=== PATIENT | male | born 1950 | race Caucasian/White ===

== ENCOUNTER 2019-07-24 08:19 | Inpatient (IN) | payer MEDICARE ==
[2019-07-24] VITALS (15 sets, daily range): BP systolic 112–149; BP diastolic 57–86
[~2019-07-24] VITALS: Ht 180.3 cm; Wt 88.9 kg
[2019-07-24 08:56] LABS: BASO % 0.3 % (0.0-1.0); EOS # 0.1 10*3/uL (0.0-0.4); EOS % 0.9 % (1.0-4.0); LYMPH % 11.3 % (27.0-41.0); MEAN CELL VOLUME 94.2 fl (80.0-94.0); MEAN CORPUSCULAR HGB 32.1 pg (27.0-31.0); MEAN CORPUSCULAR HGB CONC 34.1 g/dl (33.0-37.0); MEAN PLATELET VOLUME 9.4 fl (9.6-12.3); MONO # 0.5 10*3/uL (0.1-1.0); MONO % 6.1 % (3.0-9.0); NEUT # 7.1 10*3/uL (2.3-7.9); NEUT % 80.9 % (47.0-73.0); PLATELET COUNT AUTOMATED 215 10*3/uL (130-400); RED BLOOD COUNT 4.67 10*6/uL (4.50-5.90); WHITE BLOOD COUNT 8.7 10*3/uL (4.8-10.8)
[2019-07-24 09:07] LABS: ACT PARTIAL THROMBO TIME 27.2 SECONDS (20.0-32.1); INTERNATIONAL NORM RATIO 0.9 (2.0-3.5)
[2019-07-24 09:13] LABS: ALBUMIN 3.7 gm/dl (3.1-4.5); CREATININE 1.43 mg/dL (0.70-1.30); POTASSIUM 4.9 mmol/L (3.5-5.1); TOTAL PROTEIN 8.1 gm/dL (6.4-8.2)
[2019-07-24 09:14] LABS: TROPONIN I 0.043 ng/ml (<0.045)
--- NOTE | 2019-07-24 09:17 | NUR ---
Critical Values received: Lactic Acid 2.1 Troponin [address] Samayoa and Primary RN. No new orders received.
[2019-07-24 10:59] LABS: ABG BASE EXCESS -1.3 mmol/L (-2.0-2.0); ARTERIAL BLOOD GAS PH 7.353 (7.35-7.45)
--- NOTE | 2019-07-24 11:29 | NUR ---
A 69, admitted to ICCU, under the services of AURA Junior DO with a diagnosis of RESP FAILURE. Chief complaint is SOB AT HOME. Patient arrived via stretcher from ER. Monitor applied. Initial assessment completed. Vital signs taken and recorded. AURA JUNIOR DO notified of admission to the unit. Orders received. See assessment for past medical history, medications and allergies. Patient and/or family oriented to unit. [facility] ICCU visitation policy reviewed. Clothing/patient valuable form completed. RANDA DAVE
[2019-07-24] MEDS ORDERED: NORVASC10 MG PO (11:39)
[2019-07-24] MEDS ORDERED: GLUCOPHAGE500 MG PO (11:40)
[2019-07-24] MEDS ORDERED: PRAVASTATIN SOD20 MG PO (11:41)
[2019-07-24] MEDS ORDERED: LIPITOR20 MG PO (11:44)
--- NOTE | 2019-07-24 12:30 | NUR ---
ON BIPAP 16/10 FIO2 70% POX 94%.
[2019-07-24 15:05] LABS: ABG BASE EXCESS -4.7 mmol/L (-2.0-2.0); ARTERIAL BLOOD GAS PH 7.28 (7.35-7.45)
--- NOTE | 2019-07-24 16:00 | NUR ---
BIPAP 20/10 FIO2 60%.
[2019-07-24 18:19] LABS: ABG BASE EXCESS -2.9 mmol/L (-2.0-2.0); ARTERIAL BLOOD GAS PH 7.318 (7.35-7.45)
--- NOTE | 2019-07-24 18:30 | NUR ---
PATIENT PLACED ON HIGH FLOW NASAL CANULA TO EAT, PATIENT UNABLE TO TOLERATE AND CANNOT EAT, PLACED BACK ON BIPAP.
[2019-07-24] MEDS ORDERED: REMERON15 M2 PO (18:39)
--- NOTE | 2019-07-24 20:08 | NUR ---
PT. RESTING IN BED. IVF INFUSING VIA LW ASYMPT. LUNGS HAVE I&E WHEEZES BILAT, PULSE OX 95% ON 60% 02 BIPAP. ABDOMEN SOFT, NONDISTENDED AND NORMO. NO PERIPHERAL EDEMA NOTED. RESP. EASY AND REG NO DISTRESS. WINTER TOLEDO, RN
[2019-07-25] VITALS: BP 142/51
[2019-07-25 04:00] VITALS: BP 118/58
[2019-07-25 05:23] LABS: ALKALINE PHOSPHATASE 90 U/L (45-117); BUN 21 mg/dl (7-24); CHLORIDE 109 mmol/L (98-107); CHOLESTEROL 99 mg/dL (<200); CREATININE 1.25 mg/dL (0.70-1.30); HDL CHOLESTEROL 31 mg/dl (40-60); LDL CHOLESTEROL 46 mg/dL (9-159); PHOSPHOROUS 3.5 mg/dL (2.5-4.9); POTASSIUM 4.5 mmol/L (3.5-5.1); SGOT/AST 22 IU/L (3-35); SGPT/ALT 33 U/L (12-78); SODIUM 141 mmol/L (136-145); TOTAL PROTEIN 6.9 gm/dL (6.4-8.2); TRIGLYCERIDES 110 mg/dl (<150); VLDL CHOLESTEROL 22 mg/dL (6-40)
[2019-07-25 05:24] LABS: FREE T4 1.07 ng/dl (0.76-1.46)
[2019-07-25 05:29] LABS: THYROID STIM HORMONE (HS) 0.289 uIU/ml (0.358-4.75)
[2019-07-25 05:44] LABS: ACT PARTIAL THROMBO TIME 27.3 SECONDS (20.0-32.1); INTERNATIONAL NORM RATIO 0.9 (2.0-3.5)
[2019-07-25 06:22] LABS: VITAMIN D, 25-HYDROXY 41.1 ng/mL (30-100)
[2019-07-25 07:15] LABS: ABG BASE EXCESS -1.9 mmol/L (-2.0-2.0); ARTERIAL BLOOD GAS PH 7.33 (7.35-7.45)
[2019-07-25 08:00] VITALS: BP 121/61
[2019-07-25 10:03] LABS: BASO % 0.1 % (0.0-1.0); EOS # 0.1 10*3/uL (0.0-0.4); EOS % 1.4 % (1.0-4.0); HEMATOCRIT 39.3 % (42.0-52.0); HEMOGLOBIN 12.7 g/dl (14.0-18.0); LYMPH # 1.9 10*3/uL (1.3-4.4); LYMPH % 19.1 % (27.0-41.0); MEAN CORPUSCULAR HGB 32.2 pg (27.0-31.0); MEAN CORPUSCULAR HGB CONC 32.3 g/dl (33.0-37.0); MEAN PLATELET VOLUME 9.9 fl (9.6-12.3); MONO # 0.6 10*3/uL (0.1-1.0); MONO % 5.7 % (3.0-9.0); NEUT # 7.3 10*3/uL (2.3-7.9); NEUT % 73.3 % (47.0-73.0); PLATELET COUNT AUTOMATED 212 10*3/uL (130-400); RED BLOOD COUNT 3.95 10*6/uL (4.50-5.90)
[2019-07-25 10:13] LABS: MEAN CELL VOLUME 99.5 fl (80.0-94.0)
--- NOTE | 2019-07-25 10:30 | NUR ---
Sports Internship in to see patient. He is currently on bipap. Will follow up at a later time.
[2019-07-25 12:00] VITALS: BP 139/72
--- NOTE | 2019-07-25 13:00 | NUR ---
Mosaic Technician in to see patient. He is currently on bipap. Will follow up at a later time.
--- NOTE | 2019-07-25 14:00 | NUR ---
STOOD UP TO VOID WITH BI-PAP ON. SHORT OF BREATH. PULSE OX 90-91%. RESPIRATORY RATE IN THE 30'S.
[2019-07-25 14:46] LABS: ABG BASE EXCESS -1.7 mmol/L (-2.0-2.0); ARTERIAL BLOOD GAS PH 7.355 (7.35-7.45)
[2019-07-25 16:00] VITALS: BP 129/62
--- NOTE | 2019-07-25 19:30 | NUR ---
Pt taken off BiPap and placed on an 8L HFNC to get some dinner. Will continue to monitor.
[2019-07-25 20:00] VITALS: BP 115/55
--- NOTE | 2019-07-25 23:00 | NUR ---
Pt found back on BiPap resting comfortably. BiPap 20/10 and an FiO2 of 35%. Alarms on and audible. SpO2 94%
[2019-07-26] VITALS: BP 119/61
[2019-07-26 04:00] VITALS: BP 117/54
[2019-07-26 05:50] LABS: BUN 23 mg/dl (7-24); CHLORIDE 110 mmol/L (98-107); CREATININE 1.13 mg/dL (0.70-1.30); POTASSIUM 4.6 mmol/L (3.5-5.1); SODIUM 143 mmol/L (136-145)
[2019-07-26 07:01] LABS: ABG BASE EXCESS 1.9 mmol/L (-2.0-2.0); ARTERIAL BLOOD GAS PH 7.39 (7.35-7.45)
[2019-07-26 07:10] LABS: HEMATOCRIT 37.4 % (42.0-52.0); HEMOGLOBIN 12.1 g/dl (14.0-18.0); MEAN CELL VOLUME 97.1 fl (80.0-94.0); MEAN CORPUSCULAR HGB 31.4 pg (27.0-31.0); MEAN CORPUSCULAR HGB CONC 32.4 g/dl (33.0-37.0); MEAN PLATELET VOLUME 9.8 fl (9.6-12.3); PLATELET COUNT AUTOMATED 213 10*3/uL (130-400); RED BLOOD COUNT 3.85 10*6/uL (4.50-5.90); WHITE BLOOD COUNT 11.9 10*3/uL (4.8-10.8)
[2019-07-26 08:00] VITALS: BP 113/59
[2019-07-26 08:30] LABS: TOTAL CELLS COUNTED 100 #CELLS
[2019-07-26 08:31] LABS: PLATELET SUFFICIENCY NORMAL (NORMAL)
--- NOTE | 2019-07-26 11:00 | NUR ---
Senior Software Engineer Analytics in to talk to patient. Patient states lives at home alone with his family periodically checking in on him. There are 0 steps in the home. Physician: Dr. Pinedo at the [facility] Pharmacy: [place] or [facility] health services: none Patient's level of ADLs: INDEPENDENT Patient has working utilities: yes DME: none Follow-up physician's appointment after d/c: will be made by the hospitalist nurse director upon discharge Does patient want to access PORTAL?: no Discharge plan discussed with patient. He lives at home alone with his family checking in on him periodically. He states no one knows he is here. Asked if CM could call someone for him. He stated he doesn't know his daughter's phone number as it is in his cell phone on his chair at home. He was able to give CM his brother, Payton, phone number of [phone]. Will reach out to his brother. He is normally independent in his ADLs and ambulation. Discussed home health care services and he denies any home needs at this time. When medically stable he will be discharged to home. Awaiting chest x-ray from this morning. He is currently on bipap. JUAN BELL
[2019-07-26 12:00] VITALS: BP 108/67
--- NOTE | 2019-07-26 12:50 | NUR ---
Attempted to reach brotherBrain, at [phone] per patient's request. Awaiting return call.
[2019-07-26 16:00] VITALS: BP 115/77
--- NOTE | 2019-07-26 19:00 | NUR ---
CHART CHECK COMPLETE.
--- NOTE | 2019-07-26 19:52 | NUR ---
PT RESTING ON HIS LT SIDE. BACK ON BIPAP SINCE 190. VSS. PT WITHOUT COMPLAINTS.
[2019-07-26 20:00] VITALS: BP 119/60
[2019-07-27] VITALS: BP 112/70
--- NOTE | 2019-07-27 01:28 | NUR ---
PT SLEEPING. BIPAP IN PLACE.
[2019-07-27 04:00] VITALS: BP 116/64
[2019-07-27 06:06] LABS: BUN 23 mg/dl (7-24); CHLORIDE 110 mmol/L (98-107); POTASSIUM 4.3 mmol/L (3.5-5.1); SODIUM 143 mmol/L (136-145)
[2019-07-27 06:28] LABS: HEMOGLOBIN 12.2 g/dl (14.0-18.0); MEAN CELL VOLUME 96.1 fl (80.0-94.0); MEAN CORPUSCULAR HGB 31.7 pg (27.0-31.0); MEAN PLATELET VOLUME 9.8 fl (9.6-12.3); PLATELET COUNT AUTOMATED 222 10*3/uL (130-400); RED BLOOD COUNT 3.85 10*6/uL (4.50-5.90); RED CELL DISTRI WIDTH 11.9 % (0-14.5); WHITE BLOOD COUNT 10.6 10*3/uL (4.8-10.8)
--- NOTE | 2019-07-27 06:39 | NUR ---
OFF OF BIPAP TO HIGH FLOW O2.
[2019-07-27 07:35] LABS: ATYPICAL LYMPHS 3 % (0-0); PLATELET SUFFICIENCY NORMAL (NORMAL); TOTAL CELLS COUNTED 100 #CELLS
--- NOTE | 2019-07-27 07:45 | NUR ---
SITTING ON SIDE OF BED, SHORT OF BREATH WITH ANY EXERTION. PULSE OX 92% ON 2L NASAL CANNULA. EXPIRATORY WHEEZES HEARD IN LUNG CANNON. NO EDEMA NOTED.
[2019-07-27 08:00] VITALS: BP 125/75
[2019-07-27 08:01] LABS: ABG BASE EXCESS 0.7 mmol/L (-2.0-2.0); ARTERIAL BLOOD GAS PH 7.418 (7.35-7.45)
--- NOTE | 2019-07-27 11:00 | NUR ---
Jewelry Casting Model Maker in to see patient. He is currently on bipap. No new needs or request at this time. He states his daughter visited last night. She lives between [facility] as she helps take care of her mother also. Discussed home health care services and he denies any home needs at this time. When medically stable he will be discharged to home. Chest x-ray shows COPD, on rocephin, solumedrol, and zithromax, ABGs improving, bipap HS and prn.
--- NOTE | 2019-07-27 11:15 | NUR ---
TRANSFERRED TO ROOM 412-1 VIA BED. REPORT CALLED TO RN
[2019-07-27 12:00] VITALS: BP 128/74
[2019-07-27 16:00] VITALS: BP 128/72
[2019-07-27 20:00] VITALS: BP 118/80
--- NOTE | 2019-07-27 20:15 | NUR ---
PATIENT ASSESSMENT COMPLETED AT THIS TIME WITHOUT INCIDENT. PATIENT DENIES ANY CHEST PAIN/PRESSURE AT THIS TIME, IS SHORT OF BREATH WITH EXERTION. CURRENTLY ON NC 4LPM WHEN NOT ON BIPAP. CALL LIGHT WITHIN REACH WILL CONTINUE TO MONITOR.
[2019-07-28] VITALS: BP 131/85
--- NOTE | 2019-07-28 01:53 | NUR ---
24 HOUR CHART CHECK COMPLETED
[2019-07-28 06:37] LABS: HEMOGLOBIN 12.9 g/dl (14.0-18.0); MEAN CELL VOLUME 94.7 fl (80.0-94.0); MEAN CORPUSCULAR HGB 31.3 pg (27.0-31.0); MEAN CORPUSCULAR HGB CONC 33.1 g/dl (33.0-37.0); MEAN PLATELET VOLUME 9.7 fl (9.6-12.3); PLATELET COUNT AUTOMATED 252 10*3/uL (130-400); RED BLOOD COUNT 4.12 10*6/uL (4.50-5.90); RED CELL DISTRI WIDTH 11.9 % (0-14.5); WHITE BLOOD COUNT 13.4 10*3/uL (4.8-10.8)
[2019-07-28 06:51] LABS: BUN 19 mg/dl (7-24); CHLORIDE 109 mmol/L (98-107); CREATININE 0.97 mg/dL (0.70-1.30); POTASSIUM 4.5 mmol/L (3.5-5.1); SODIUM 142 mmol/L (136-145)
--- NOTE | 2019-07-28 07:50 | NUR ---
Patient resting quietly with no c/o discomfort. Respirations easy and regular. Vital signs stable. No overt distress. ABDI MCCALL
[2019-07-28 08:00] VITALS: BP 124/60
[2019-07-28 08:00] LABS: PLATELET SUFFICIENCY NORMAL (NORMAL); TOTAL CELLS COUNTED 100 #CELLS
--- NOTE | 2019-07-28 09:00 | NUR ---
Workers Compensation Analyst in to see patient. Discussed home health care services and he is agreeable. When provided with a list of agencies he chose [facility]. Dr. Knox notified. When medically stable he will be discharged to home with [facility] services.
[2019-07-28 12:00] VITALS: BP 105/70
--- NOTE | 2019-07-28 12:30 | NUR ---
HOME O2 ASSESSMENT ROOM AIR AT REST: SPO2 86% HR 102 RR 26 BP 105/72 2L AT REST: SPO2 92% HR 98 RR 24 2L WITH AMBULATION: SPO2 87% HR 102 3L WITH AMBULATION: SPO2 90-92% HR 108-112 RECOVERY ON 3L: SPO2 93% HR 102 RR 24 BP 124/60 PT. REQUIRES SUPPLEMENTAL O2 TO KEEP SPO2 >= TO 88% AT REST AND DURING AMBULATION. RN NOTIFIED.
--- NOTE | 2019-07-28 14:23 | NUR ---
Faxed new home health order to [facility]
--- NOTE | 2019-07-28 15:37 | NUR ---
Received call from [facility] and they are able to accept patient.
[2019-07-28 16:00] VITALS: BP 132/90
[2019-07-28 20:00] VITALS: BP 141/92
[2019-07-29] VITALS: BP 135/82
--- NOTE | 2019-07-29 02:58 | NUR ---
24 HOUR CHART CHECK COMPLETED
--- NOTE | 2019-07-29 07:45 | NUR ---
24 HR chart check completed.
[2019-07-29 08:00] VITALS: BP 118/76
--- NOTE | 2019-07-29 08:00 | NUR ---
Patient resting quietly with no c/o discomfort. Respirations easy and regular. Vital signs stable. No overt distress. SONIA ZULUAGA
[2019-07-29 08:33] LABS: HEMATOCRIT 40.3 % (42.0-52.0); HEMOGLOBIN 13.5 g/dl (14.0-18.0); MEAN CELL VOLUME 95.7 fl (80.0-94.0); MEAN CORPUSCULAR HGB 32.1 pg (27.0-31.0); MEAN CORPUSCULAR HGB CONC 33.5 g/dl (33.0-37.0); MEAN PLATELET VOLUME 9.6 fl (9.6-12.3); PLATELET COUNT AUTOMATED 270 10*3/uL (130-400); RED BLOOD COUNT 4.21 10*6/uL (4.50-5.90); RED CELL DISTRI WIDTH 11.8 % (0-14.5); WHITE BLOOD COUNT 12.7 10*3/uL (4.8-10.8)
[2019-07-29 08:43] LABS: BUN 17 mg/dl (7-24); CHLORIDE 106 mmol/L (98-107); CREATININE 1.02 mg/dL (0.70-1.30); POTASSIUM 3.8 mmol/L (3.5-5.1); SODIUM 142 mmol/L (136-145)
[2019-07-29 09:38] LABS: TOTAL CELLS COUNTED 100 #CELLS
[2019-07-29 09:39] LABS: PLATELET SUFFICIENCY NORMAL (NORMAL)
[2019-07-29] MEDS ORDERED: AVPAK AZITHROM250 MG PO (10:53)
[2019-07-29] MEDS ORDERED: PREDNISONE10 MG PO (10:53)
[2019-07-29 12:00] VITALS: BP 118/78
--- NOTE | 2019-07-29 12:00 | NUR ---
Patient resting quietly with no c/o discomfort. Respirations easy and regular. Vital signs stable. No overt distress. SONIA ZULUAGA
--- NOTE | 2019-07-29 15:40 | NUR ---
LEAVING IN CARE OF DAUGHTER VIA WHEELCHAIR.
== END 2019-07-29 15:42 | disposition home or self-care (01) | DRG 871 ==
LOC: ED 08:19 → EDHOLD 10:44 → ICCU 10:44 → 4E 07-27 11:17
PROVIDERS: Emergency Medicine; Internal Medicine; Internal Medicine Critical Care Medicine; Student in an Organized Health Care Education/Training Program; ADMIT Internal Medicine
PROC: 5A09357 Assistance with Respiratory Ventilation, Less than 24 Consecutive Hours, Continuous Positive Airway Pressure (ICD-10-PCS; principal; 2019-07-24)
PROC: 5A09357 Assistance with Respiratory Ventilation, Less than 24 Consecutive Hours, Continuous Positive Airway Pressure (ICD-10-PCS; 2019-07-25)
PROC: 5A09357 Assistance with Respiratory Ventilation, Less than 24 Consecutive Hours, Continuous Positive Airway Pressure (ICD-10-PCS; 2019-07-26)
PROC: 5A09357 Assistance with Respiratory Ventilation, Less than 24 Consecutive Hours, Continuous Positive Airway Pressure (ICD-10-PCS; 2019-07-27)
PROC: 5A09357 Assistance with Respiratory Ventilation, Less than 24 Consecutive Hours, Continuous Positive Airway Pressure (ICD-10-PCS; 2019-07-28)
PROC: 5A09357 Assistance with Respiratory Ventilation, Less than 24 Consecutive Hours, Continuous Positive Airway Pressure (ICD-10-PCS; 2019-07-29)
DX: A41.9 Sepsis, unspecified organism (principal); J96.01 Acute respiratory failure with hypoxia; J18.9 Pneumonia, unspecified organism; N17.0 Acute kidney failure with tubular necrosis; E43 Unspecified severe protein-calorie malnutrition; J96.02 Acute respiratory failure with hypercapnia; E87.1 Hypo-osmolality and hyponatremia; I24.8 Other forms of acute ischemic heart disease; J44.0 Chronic obstructive pulmonary disease with (acute) lower respiratory infection; J44.1 Chronic obstructive pulmonary disease with (acute) exacerbation; R65.20 Severe sepsis without septic shock; E11.65 Type 2 diabetes mellitus with hyperglycemia; E83.41 Hypermagnesemia; I10 Essential (primary) hypertension; E78.5 Hyperlipidemia, unspecified; F17.210 Nicotine dependence, cigarettes, uncomplicated; E87.8 Other disorders of electrolyte and fluid balance, not elsewhere classified; J20.9 Acute bronchitis, unspecified; T38.0X5A Adverse effect of glucocorticoids and synthetic analogues, initial encounter; Z68.27 Body mass index [BMI] 27.0-27.9, adult; Z71.6 Tobacco abuse counseling; Z85.51 Personal history of malignant neoplasm of bladder; Z82.3 Family history of stroke; Z82.49 Family history of ischemic heart disease and other diseases of the circulatory system; Z79.899 Other long term (current) drug therapy; Z91.018 Allergy to other foods; Y92.89 Other specified places as the place of occurrence of the external cause

== ENCOUNTER → 2019-08-29 | Outpatient (CLI) | payer OTHER ==
[~2019-08-29] MED LIST: AVPAK AZITHROM250 MG PO; GLUCOPHAGE500 MG PO; LIPITOR20 MG PO; NORVASC10 MG PO; PRAVASTATIN SOD20 MG PO; PREDNISONE10 MG PO; REMERON15 M2 PO
== END | disposition home or self-care (01) ==
LOC: CT 10:37
DX: J43.9 Emphysema, unspecified (principal); N28.1 Cyst of kidney, acquired; K76.0 Fatty (change of) liver, not elsewhere classified; D71 Functional disorders of polymorphonuclear neutrophils; R69 Illness, unspecified; Z87.01 Personal history of pneumonia (recurrent); Z87.891 Personal history of nicotine dependence

== ENCOUNTER 2019-09-02 12:42 | Emergency (ER) | payer MEDICARE ==
[~2019-09-02] VITALS: Wt 81.6 kg
[2019-09-02 13:00] LABS: BASO # 0.1 10*3/uL (0.0-0.1); BASO % 0.7 % (0.0-1.0); EOS # 0.6 10*3/uL (0.0-0.4); EOS % 6.4 % (1.0-4.0); HEMATOCRIT 42.4 % (42.0-52.0); HEMOGLOBIN 14.3 g/dl (14.0-18.0); LYMPH # 3.9 10*3/uL (1.3-4.4); LYMPH % 40.7 % (27.0-41.0); MEAN CELL VOLUME 95.3 fl (80.0-94.0); MEAN CORPUSCULAR HGB 32.1 pg (27.0-31.0); MEAN CORPUSCULAR HGB CONC 33.7 g/dl (33.0-37.0); MEAN PLATELET VOLUME 9.1 fl (9.6-12.3); MONO # 0.8 10*3/uL (0.1-1.0); MONO % 8.8 % (3.0-9.0); NEUT % 42.5 % (47.0-73.0); PLATELET COUNT AUTOMATED 283 10*3/uL (130-400); RED BLOOD COUNT 4.45 10*6/uL (4.50-5.90); RED CELL DISTRI WIDTH 12.3 % (0-14.5); WHITE BLOOD COUNT 9.5 10*3/uL (4.8-10.8)
[2019-09-02 13:11] LABS: INTERNATIONAL NORM RATIO 0.9 (2.0-3.5)
[2019-09-02 13:16] LABS: ALBUMIN 3.9 gm/dl (3.1-4.5); ALKALINE PHOSPHATASE 141 U/L (45-117); BUN 7 mg/dl (7-24); CHLORIDE 106 mmol/L (98-107); CREATININE 1.09 mg/dL (0.70-1.30); POTASSIUM 4.2 mmol/L (3.5-5.1); SGOT/AST 19 IU/L (3-35); SGPT/ALT 45 U/L (12-78); SODIUM 140 mmol/L (136-145); TOTAL PROTEIN 7.5 gm/dL (6.4-8.2)
[2019-09-02 13:17] LABS: TROPONIN I < 0.015 ng/ml (<0.045)
== END 2019-09-02 14:45 | disposition home or self-care (01) ==
LOC: ED 12:42
PROVIDERS: Emergency Medicine
DX: R07.9 Chest pain, unspecified (principal); E78.5 Hyperlipidemia, unspecified; I10 Essential (primary) hypertension; E11.9 Type 2 diabetes mellitus without complications; Z79.2 Long term (current) use of antibiotics; Z79.84 Long term (current) use of oral hypoglycemic drugs; Z79.899 Other long term (current) drug therapy; Z87.891 Personal history of nicotine dependence

== ENCOUNTER → 2020-10-09 | Outpatient (CLI) | payer OTHER | END | disposition home or self-care (01) | LOC: CT 12:28 | PROVIDERS: ATTEND Nurse Practitioner Family | DX: I65.23 Occlusion and stenosis of bilateral carotid arteries (principal) ==

== ENCOUNTER 2022-10-26 23:21 | Emergency (ER) | payer MEDICARE ==
[~2022-10-26] VITALS: Ht 180.3 cm; Wt 104.3 kg
[2022-10-27 01:16] LABS: BASO # 0.1 10*3/uL (0.0-0.1); BASO % 0.5 % (0.0-1.0); EOS # 0.5 10*3/uL (0.0-0.4); EOS % 4.8 % (1.0-4.0); HEMATOCRIT 37.4 % (42.0-52.0); LYMPH # 2.5 10*3/uL (1.3-4.4); LYMPH % 23.5 % (27.0-41.0); MEAN CELL VOLUME 94.4 fl (80.0-94.0); MEAN CORPUSCULAR HGB 31.6 pg (27.0-31.0); MEAN CORPUSCULAR HGB CONC 33.4 g/dl (33.0-37.0); MEAN PLATELET VOLUME 9.2 fl (9.6-12.3); NEUT # 6.7 10*3/uL (2.3-7.9); NEUT % 61.9 % (47.0-73.0); PLATELET COUNT AUTOMATED 230 10*3/uL (130-400); RED BLOOD COUNT 3.96 10*6/uL (4.50-5.90); RED CELL DISTRI WIDTH 11.8 % (0-14.5); WHITE BLOOD COUNT 10.8 10*3/uL (4.8-10.8)
== END 2022-10-27 03:41 | disposition home or self-care (01) ==
LOC: ED 23:21
PROVIDERS: Emergency Medicine
DX: R23.3 Spontaneous ecchymoses (principal); E87.8 Other disorders of electrolyte and fluid balance, not elsewhere classified; E11.65 Type 2 diabetes mellitus with hyperglycemia; E83.41 Hypermagnesemia; E87.1 Hypo-osmolality and hyponatremia; J45.909 Unspecified asthma, uncomplicated; I10 Essential (primary) hypertension; Z98.890 Other specified postprocedural states; F17.210 Nicotine dependence, cigarettes, uncomplicated

== ENCOUNTER 2024-07-23 12:59 | Emergency (ER) | payer MEDICARE ==
[~2024-07-23] VITALS: Ht 177.8 cm; Wt 96.2 kg
[~2024-07-23 12:59] MED LIST changes: +AMLODIPINE BESYL5 MG PO; +CLOPIDOGREL75 MG PO; +GLIPIZIDE2.5 M1 PO; -LIPITOR20 MG PO; +LIPITOR80 MG PO; +METFORMIN HYD1000 MG PO; +METOPROLOL TART75 MG PO; +[UNRECOGNIZED DRUG - OTHER]
[2024-07-23] MEDS ORDERED: Ondansetron Hydrochloride 4 MG/2 ML VIAL IV ONE (13:25)
[2024-07-23] MEDS ORDERED: MORPHINE Sulfate 2 MG/ML SYR IV ONE (13:25)
[2024-07-23 13:36] LABS: BASO % 0.4 % (0.0-1.0); EOS # 0.3 10*3/uL (0.0-0.4); EOS % 4.2 % (1.0-4.0); HEMATOCRIT 30.8 % (42.0-52.0); MEAN CELL VOLUME 92.8 fl (80.0-94.0); MEAN CORPUSCULAR HGB 31.3 pg (27.0-31.0); MEAN CORPUSCULAR HGB CONC 33.8 g/dl (33.0-37.0); MEAN PLATELET VOLUME 8.9 fl (9.6-12.3); MONO # 0.7 10*3/uL (0.1-1.0); MONO % 8.1 % (3.0-9.0); NEUT # 5.2 10*3/uL (2.3-7.9); NEUT % 64.2 % (47.0-73.0); PLATELET COUNT AUTOMATED 197 10*3/uL (130-400); RED BLOOD COUNT 3.32 10*6/uL (4.50-5.90)
[2024-07-23] MEDS ORDERED: ASPIRIN ADULT L81 M2 PO (14:59)
== END 2024-07-23 19:24 | disposition home or self-care (01) ==
LOC: ED 12:59
PROVIDERS: Emergency Medicine
DX: R07.89 Other chest pain (principal); I10 Essential (primary) hypertension; I25.10 Atherosclerotic heart disease of native coronary artery without angina pectoris; E78.5 Hyperlipidemia, unspecified; E11.9 Type 2 diabetes mellitus without complications; Z98.890 Other specified postprocedural states

== ENCOUNTER 2024-12-13 11:38 | Emergency (ER) | payer MEDICARE ==
[~2024-12-13] VITALS: Ht 177.8 cm; Wt 96.2 kg
[~2024-12-13 11:38] MED LIST changes: +ASPIRIN ADULT L81 M2 PO; +LOPRESSOR25 MG PO
[2024-12-13] MEDS ORDERED: ALLERGY RELIE15.8 ML NAS (11:54)
[2024-12-13] MEDS ORDERED: LOPRESSOR25 MG PO (11:56)
[2024-12-13 12:25] LABS: BASO % 0.5 % (0.0-1.0); EOS # 0.3 10*3/uL (0.0-0.4); EOS % 3.3 % (1.0-4.0); HEMATOCRIT 32.1 % (42.0-52.0); MEAN CELL VOLUME 91.5 fl (80.0-94.0); MEAN CORPUSCULAR HGB 30.8 pg (27.0-31.0); MEAN CORPUSCULAR HGB CONC 33.6 g/dl (33.0-37.0); MEAN PLATELET VOLUME 9.1 fl (9.6-12.3); MONO # 0.7 10*3/uL (0.1-1.0); MONO % 8.6 % (3.0-9.0); NEUT # 5.9 10*3/uL (2.3-7.9); NEUT % 69.1 % (47.0-73.0); PLATELET COUNT AUTOMATED 210 10*3/uL (130-400); RED BLOOD COUNT 3.51 10*6/uL (4.50-5.90); RED CELL DISTRI WIDTH 12.3 % (0-14.5); WHITE BLOOD COUNT 8.6 10*3/uL (4.8-10.8)
[2024-12-13 12:45] LABS: POTASSIUM 5.3 mmol/L (3.4-5.1)
== END 2024-12-13 12:57 | disposition home or self-care (01) ==
LOC: ED 11:38
PROVIDERS: Physician Assistant Medical
DX: I10 Essential (primary) hypertension (principal); I12.9 Hypertensive chronic kidney disease with stage 1 through stage 4 chronic kidney disease, or unspecified chronic kidney disease; E11.22 Type 2 diabetes mellitus with diabetic chronic kidney disease; N18.9 Chronic kidney disease, unspecified; J44.9 Chronic obstructive pulmonary disease, unspecified; E78.5 Hyperlipidemia, unspecified; Z79.899 Other long term (current) drug therapy; Z88.0 Allergy status to penicillin; Z98.890 Other specified postprocedural states